=== PATIENT | male | born 1970 | race Caucasian/White ===

== ENCOUNTER 2022-01-03 18:31 | Emergency (ER) | payer BC ==
[2022-01-03] MEDS ORDERED: Sodium Chloride 0.9% 10 ML Syringe FLUSH PRN (18:40)
[2022-01-03 19:16] LABS: ANION GAP 9.4 mmol/L (5-15); CHLORIDE,CL 101 mmol/L (98-107); SODIUM,NA 136 mmol/L (136-145)
[2022-01-03 19:17] LABS: ESTIMATED GFR 98 mL/min (>=60)
== END 2022-01-03 19:50 | disposition home or self-care (01) ==
LOC: KA.ED 18:31
DX: B34.9 Viral infection, unspecified (principal); Z79.899 Other long term (current) drug therapy; Z20.822 Contact with and (suspected) exposure to COVID-19
CPT/HCPCS: 36415; 71045; 80053; 84484; 85025; 93010; 99284; U0002